=== PATIENT | male | born 1970 ===

== ENCOUNTER 2017-09-03 12:38 | Emergency (ER) | payer BC, OTHER ==
[2017-09-03 12:45] VITALS: BP 152/97; PULSE 77; RESP 16; TEMP 98.8; O2SAT 98
[2017-09-03] MEDS ORDERED: Lidocaine 1% w Epi 1:100,000 Inj INJ STA (12:56)
[2017-09-03] MEDS ORDERED: Tmp-Smz 800 mg-160 mg DS Tab PO STA (13:42)
[2017-09-03] MEDS ORDERED: Tmp-Smz 800 mg-160 mg DS Tab ONE (13:48)
--- NOTE | 2017-09-03 13:54 | C.PDOC ---
History Of Present Illness 47 year old male presents to the ED for evaluation of an abscess over his left eyebrow which developed over the past 3 days. Patient notes the area started off as a small "pimple" which he squeezed. He notes the area has increased in size and has become more painful. Patient denies fever, chills or injuries to the area. Time Seen by Provider: 09/03/17 12:48 Chief Complaint (Nursing): Abnormal Skin Integrity History Per: Patient History/Exam Limitations: no limitations Onset/Duration Of Symptoms: Days (3) Current Symptoms Are (Timing): Still Present Location Of Injury: Left: Face (eyebrow ) Quality Of Symptoms: Painful Additional History Per: Patient Past Medical History Reviewed: Historical Data, Nursing Documentation, Vital Signs Vital Signs: Last Vital Signs Temp 98.8 F 09/03/17 12:42 Pulse 77 09/03/17 12:42 Resp 16 09/03/17 12:42 BP 152/97 H 09/03/17 12:42 Pulse Ox 98 09/03/17 18:46 - Medical History PMH: No Chronic Diseases Surgical History: No Surg Hx Family History: States: Unknown Family Hx - Social History Hx Tobacco Use: Yes Hx Alcohol Use: Yes Hx Substance Use: Yes - Immunization History Hx Tetanus Toxoid Vaccination: No Hx Influenza Vaccination: No Hx Pneumococcal Vaccination: No Review Of Systems Constitutional: Negative for: Fever, Chills Skin: Positive for: Other (abscess over left eyebrow ) Physical Exam - Physical Exam Appears: Non-toxic, No Acute Distress Skin: Normal Color, Warm, Dry, Other (round, erythematous, shiny, fluctuant abscess over left eyebrow. no drainage ) Head: Atraumatic, Normacephalic Eye(s): bilateral: Normal Inspection, PERRL, EOMI, left: Other (eyelid swelling ) Oral Mucosa: Moist Neck: Supple Extremity: Normal ROM Neurological/Psych: Oriented x3, Normal Speech, Normal Cognition ED Course And Treatment O2 Sat by Pulse Oximetry: 98 (on RA) Pulse Ox Interpretation: Normal Progress Note: Bactrim PO, Keflex PO given. Fluctuant area noted to left eyebrow. Local anesthesia achieved with 1% lidocaine with epinephrine. Small incision made with sterile #11 blade scalpel. Copious amounts of yellow purulent discharge expressed. Sterile packing placed in incision. Wound dressed with dry, sterile dressing. Pt tolerated well. On re-exam, patient is resting comfortably, showing no signs of distress and is stable for discharge. Patient is given Rx for Bactrim and Keflex and is advised to return to the ED for wound check in 2 days. - Incision & Drainage Of Abscess Anesthesia: Lidocaine 1%, With Epi Prep Used: Sterile Water, Betadine Procedure: Incised W/Scalpel Blade#: (11), Drained Pus, Irrigated Cavity W/ Saline, Probed To Break Up Loculations, Packed W/Gauze, Cultures Obtained And Sent To Lab Disposition - Disposition Disposition: HOME/ ROUTINE Disposition Time: 13:53 Condition: STABLE Additional Instructions: Follow up with PMD within 1-2 days. Return to ED for wound check and drain removal in 2 days. Return to Ed immediately if feel worse. 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 - Scribe Statement The provider has reviewed the documentation as recorded by the Scribe (Stephanie Lopes) All medical record entries made by the Scribe were at my direction and personally dictated by me. I have reviewed the chart and agree that the record accurately reflects my personal performance of the history, physical exam, medical decision making, and the department course for this patient. I have also personally directed, reviewed, and agree with the discharge instructions and disposition.
== END 2017-09-03 14:00 | disposition home or self-care (01) ==
LOC: C.ER 12:38
DX: L02.01 Cutaneous abscess of face (principal)

== ENCOUNTER 2017-09-05 13:45 | Emergency (ER) | payer BC ==
[2017-09-05 13:57] VITALS: BP 152/92; PULSE 96; RESP 16; TEMP 98.8; O2SAT 98
--- NOTE | 2017-09-05 14:01 | C.PDOC ---
History Of Present Illness 47 yo male come in for scheduled wound check over Left eyebrow after abscess was I&D on 09/03/17 here [facility] ED. Pt reports, mod improvement in pain and swelling. Denies fever, chills, headache, dizziness, significant wound discharges or any other new changes. Ambulate to Ed for evaluation, not in any apparent distress. Time Seen by Provider: 09/05/17 13:52 Chief Complaint (Nursing): Abnormal Skin Integrity History Per: Patient Past Medical History Reviewed: Historical Data, Nursing Documentation, Vital Signs Vital Signs: Last Vital Signs Temp 98.8 F 09/05/17 13:55 Pulse 96 H 09/05/17 13:55 Resp 16 09/05/17 13:55 BP 152/92 H 09/05/17 13:55 Pulse Ox 98 09/05/17 14:01 - Medical History PMH: No Chronic Diseases Family History: States: Unknown Family Hx - Social History Hx Tobacco Use: Yes Hx Alcohol Use: Yes Hx Substance Use: Yes - Immunization History Hx Tetanus Toxoid Vaccination: No Hx Influenza Vaccination: No Hx Pneumococcal Vaccination: No Review Of Systems Except As Marked, All Systems Reviewed And Found Negative. Constitutional: Negative for: Fever, Chills Eyes: Negative for: Vision Change ENT: Negative for: Ear Discharge, Nose Discharge Skin: Positive for: Lesions Neurological: Negative for: Weakness, Numbness, Headache, Dizziness Physical Exam - Physical Exam Appears: Well, Non-toxic, No Acute Distress Skin: Normal Color, Warm, Other (Left eyebrow: small open wound with inserted packing, mild edema, scant purulent discharges. No erythema, no proximal streaking.) Head: Normacephalic Eye(s): bilateral: PERRL Nose: No Flaring, No Discharge Oral Mucosa: Moist Tongue: Normal Appearing Lips: Normal Appearing Throat: Normal Neck: Trachea Midline, Supple Lymphatic: No Adenopathy (cervical) Extremity: Normal ROM Neurological/Psych: Oriented x3, Normal Speech ED Course And Treatment O2 Sat by Pulse Oximetry: 98 Pulse Ox Interpretation: Normal Progress Note: On re-eval, pt is afebrile, hemodynamicaly stable. non-toxic. Left eyebrow: wound cleaned, packing removed and wound irrigated with NS, no significant discharges. No proximal streaking, no flactualnce. No eye involvement.No pain or limitation on extraocular movement. WOund cx review (+) staph with sensitivity to bactrim. Pt advised to continue given abx: Bactrim and Keflex. RFef. to F/u with PMD in 2-3 days for re-eval as need. return if any worsening. Disposition Counseled Patient/Family Regarding: Diagnosis, Need For Followup - Disposition Referrals: [facility] [Outside] Disposition: HOME/ ROUTINE Disposition Time: 14:01 Condition: STABLE Additional Instructions: Keep wound clean, dry Clean daily with peroxide Continue antibiotic as initiated Follow up with PMD in 2-3 days for re-evaluation. return if any worsening. Instructions: Skin Abscess Forms: [employer] (Kinyarwanda) - Clinical Impression Clinical Impression: Wound check, abscess
== END 2017-09-05 14:30 | disposition home or self-care (01) ==
LOC: C.ER 13:45
DX: Z48.89 Encounter for other specified surgical aftercare (principal)

== ENCOUNTER 2018-01-26 19:12 | Emergency (ER) | payer OTHER, BC ==
[2018-01-26 19:31] VITALS: BP 169/80; PULSE 89; RESP 20; TEMP 98; O2SAT 99
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
== END 2018-01-26 21:08 | disposition home or self-care (01) ==
LOC: C.ER 19:12
DX: M54.5 Low back pain (principal); V49.9XXA Car occupant (driver) (passenger) injured in unspecified traffic accident, initial encounter